=== PATIENT | male | born 1995 | race Caucasian/White ===

== ENCOUNTER 2019-04-28 08:35 | Emergency (ER) | payer OTHER ==
[~2019-04-28] VITALS: Ht 177.8 cm; Wt 104.5 kg
[~2019-04-28 08:35] MED LIST: BACI500O8 TOP; HYDR-3715 PO
[2019-04-28 09:38] LABS: HEMOGLOBIN 16.3 g/dl (13.5-17.5); MEAN CORPUSCULAR HEMOGLOBIN 30.1 pg (27.0-33.0); MEAN CORPUSCULAR HGB CONC 34.7 g/dl (32.0-36.5); MEAN CORPUSCULAR VOLUME 86.9 fl (80.0-96.0); PLATELET COUNT, AUTOMATED 267 10^3/uL (150-450); RED BLOOD COUNT 5.41 10^6/uL (4.30-6.10); WHITE BLOOD COUNT 15.2 10^3/uL (4.0-10.0)
[2019-04-28 10:10] LABS: BLOOD UREA NITROGEN 11 MG/DL (7-18); CALCIUM LEVEL 9.2 MG/DL (8.5-10.1); CARBON DIOXIDE LEVEL 25 MEQ/L (21-32); CHLORIDE LEVEL 109 MEQ/L (98-107); CREATININE FOR GFR 0.93 MG/DL (0.70-1.30); GLOMERULAR FILTRATION RATE > 60.0 (>60); GLUCOSE, FASTING 90 MG/DL (70-100); MAGNESIUM LEVEL 2.1 MG/DL (1.8-2.4); SODIUM LEVEL 141 MEQ/L (136-145)
[2019-04-28 10:30] VITALS: BP 114/71
[2019-04-28 10:33] LABS: BASO # 0.1 10^3/uL (0.0-0.2); BASO % 0.3 % (0.0-1.0); EOS % 0.2 % (0.0-3.0); LYMPH # 1.6 10^3/uL (1.5-5.0); LYMPH % 10.6 % (24.0-44.0); MONO # 0.6 10^3/uL (0.0-0.8); MONO % 3.8 % (0.0-5.0); NEUTROPHILS # 12.5 10^3/uL (1.5-8.5); NEUTROPHILS % 84.6 % (36.0-66.0)
== END 2019-04-28 11:09 | disposition home or self-care (01) ==
LOC: M ED 08:35 → EDBD 08:35 → M ED 11:09
DX: J45.990 Exercise induced bronchospasm (principal)

== ENCOUNTER → 2019-06-19 | Outpatient (CLI) | payer OTHER ==
[~2019-06-19] MED LIST changes: +METHACHOLINE KIT (J7674) INH ONE
--- NOTE | 2019-06-19 11:13 | PFTRPT ---
Site: [facility], [address] [place], [address] ID: [id number] Name: RESHMA BARROW Visit Date: 06/19/2019 Second ID: [id number] Referring Doctor: DARIO STORY Reviewing Doctor: Jude Mccann MD Sieve Repairer: Deshaun CORONADO RRT Age: 23 : 1995 Sex: Male Race: Height: 70.00 Inches Weight: 230.00 Lbs BSA: 2.22 Order IDs: [id number] Requested Test(s): <RESP-PFT.METH CHAL> Diagnosis: R05 of albuterol for postbronchodilator. Review Status: Not Reviewed Pre-Bronch Post-Bronch Pred Actual %Pred Actual %Chng SPIROMETRY FVC (L) 5.57 5.28 94 5.50 4 FEV1 (L) 4.62 4.68 101 4.61 -1 FEV1/FVC (%) 83 89 106 84 -5 FEF 25% (L/sec) 9.07 8.18 90 7.21 -11 FEF 50% (L/sec) 6.31 6.49 102 5.24 -19 FEF 75% (L/sec) 2.42 3.53 145 2.99 -15 FEF 25-75% (L/sec) 4.83 5.87 121 4.82 -18 FEF Max (L/sec) 10.15 8.68 85 7.73 -10 FIVC (L) 5.34 5.11 -4 FIF 50% (L/sec) 5.69 4.96 87 4.70 -5 FIF Max (L/sec) 6.76 5.76 -14 Expiratory Time (sec) 6.75 6.98 3 Back Extrap Vol (L) 0.12 0.12 3 Time To FEFmax (sec) 0.090 0.095 5
== END ==
LOC: M CARPUL 10:21
PROVIDERS: ATTEND Nurse Practitioner Family
DX: R05 Cough (principal)
CPT/HCPCS: 94070; J7674